=== PATIENT | male | born 2000 | race African-American/Black ===

== ENCOUNTER 2025-02-05 12:49 | Emergency (ER) | payer BC, OTHER ==
[2025-02-05 12:56] VITALS: BP 134/67; PULSE 75; RESP 16; TEMP 97.8; BMI 33.0
[2025-02-05 14:11] LABS: ABSOLUTE IMMATURE GRANULOCYTES 0.05 x10^3/uL (0.0-0.031); BASOPHILS # 0.05 x10^3/uL (0.01-0.08); EOSINOPHIL % 0.8 % (0.8-7.0); EOSINOPHILS # 0.08 x10^3/uL (0.04-0.54); HEMATOCRIT 45.7 % (40.1-51.0); HEMOGLOBIN 14.3 g/dL (13.7-17.5); MCHC 31.3 g/dl (32.3-36.5); MEAN CELL VOLUME 85.3 fl (79.0-92.2); MEAN PLT VOLUME 9.8 fl (9.4-12.4); MONOCYTE # 0.78 x10^3/uL (0.30-0.82); PLATELET COUNT 188 x10^3/uL (163-337); RDW 15.2 % (11.9-15.3)
[2025-02-05 14:30] LABS: POTASSIUM 4.3 mmol/L (3.5-5.1)
[2025-02-05 14:33] LABS: ALBUMIN 3.7 g/dl (3.4-5.0); BLOOD UREA NITROGEN 11.2 mg/dL (7-18); MAGNESIUM 2.1 mg/dL (1.8-2.4)
[2025-02-05 14:36] LABS: CREATININE 0.7 mg/dL (0.55-1.3)
[2025-02-05 14:37] LABS: BILIRUBIN,TOTAL 0.1 mg/dL (0.2-1); TOT PROT 7.2 g/dl (6.4-8.2)
== END 2025-02-05 13:30 | disposition left against medical advice (07) ==
LOC: JER 12:49
DX: R00.2 Palpitations (principal)
CPT/HCPCS: 0241U-QW; 36415; 71046-TC-FY; 80053; 83735; 84439; 84443; 84481; 84484; 85025; 93005; 93010; 99285-25